=== PATIENT | female | born 1960 | race Caucasian/White ===

== ENCOUNTER 2020-12-25 11:16 | Emergency (ER) | payer MEDICARE, MEDICAID, SELFPAY ==
[2020-12-25] VITALS (8 sets, daily range): BP systolic 134–154; BP diastolic 69–82; PULSE 104–108; RESP 15–18; TEMP 36.6; O2SAT 95–100; BMI 19.5
--- NOTE | 2020-12-25 11:25 | XRR_ITS ---
PROCEDURE INFORMATION: Exam: XR Chest Exam date and time: 12/25/2020 11:37 AM Age: 60 years old Clinical indication: Chest pain; Additional info: susan MARINO TECHNIQUE: Imaging protocol: XR of the chest. Views: 1 view. COMPARISON: No relevant prior studies available. FINDINGS: Lungs: The lungs are hyperinflated compatible with COPD. Probable fibrosis is noted in the lung bases. No consolidation. Pleural spaces: Unremarkable. No pleural effusion. No pneumothorax. Heart/Mediastinum: Unremarkable. No cardiomegaly. Bones/joints: No acute abnormality. XR/XR chest 1V portable [id number] IMPRESSION: No acute findings.
--- NOTE | 2020-12-25 11:25 | CTR_ITS ---
PROCEDURE INFORMATION: Exam: CT Abdomen And Pelvis Without Contrast Exam date and time: 12/25/2020 11:37 AM Age: 60 years old Clinical indication: Abdominal pain; Flank; Right; Additional info: Right flank pain/ hematuria TECHNIQUE: Imaging protocol: Computed tomography of the abdomen and pelvis without contrast. Total images: 297 Radiation optimization: All CT scans at this facility use at least one of these dose optimization techniques: automated exposure control; mA and/or kV adjustment per patient size (includes targeted exams where dose is matched to clinical indication); or iterative reconstruction. COMPARISON: No relevant prior studies available. RADIATION DOSE METRICS: Total DLP (mGy-cm): 897.87 FINDINGS: Lungs: Limited assessment lung bases reveals mild dependent atelectasis. Mild cardiomegaly. Coronary artery disease. No visible pericardial effusion. Liver: No visible hepatic mass or cystic structure. Hepatomegaly. Gallbladder and bile ducts: Enlarged hydropic gallbladder. No visible cholelithiasis. No visible intra or extrahepatic biliary ectasia. Pancreas: Moderate pancreatic atrophy. No visible pancreatic ductal ectasia. Spleen: Normal. No splenomegaly. Adrenal glands: Adrenal glands unremarkable. Kidneys and ureters: No visible hydronephrosis or hydroureter bilaterally. No visible perinephric fluid. No visible nephrolithiasis or ureterolithiasis. Stomach and bowel: Nonobstructive bowel pattern. No visible significant adynamic or reactive ileus. No findings of significant diverticulosis coli or acute diverticulitis. Appendix: The appendix is visualized and appears noninflamed. Intraperitoneal space: No visible pneumoperitoneum or intraperitoneal ascites. Vasculature: The abdominal aorta is nonaneurysmal. Mild arteriosclerosis. Lymph nodes: Unremarkable. No enlarged lymph nodes. Urinary bladder: Urinary bladder unremarkable. Reproductive: Status post hysterectomy. Bones/joints: Burst fracture L5 without significant retropulsion component. No visible posterior element involvement. Anterior height loss of approximately 60% and posteriorly 20-30%. This fracture appears recent. Antecedent appearing mild wedge compression deformities T12 and L1. Osteopenia. Mild scoliotic curvature. Soft tissues: Unremarkable for age. CT/CT kidney stone [id number] IMPRESSION: 1. Burst fracture L5. No visible significant retropulsion component. 2. No visible hydronephrosis, hydroureter, ureterolithiasis, nephrolithiasis, or nephrocalcinosis. 3. Hepatomegaly. 4. Coronary artery disease. 5. Enlarged hydropic gallbladder without visible cholelithiasis or associated biliary ectasia. 6. Other nonurgent, nonemergent, chronic, and age related findings as pleural detailed in text above. Radiation Dose CTDIVOL = (mGy): DLP = 897.87 (mGy-cm)
--- NOTE | 2020-12-25 11:32 | ECG_ITS ---
[facility] Test Date: 2020-12-25 Pat Name: Yvonne Correia Department: Room: Gender: Female Mess Attendant: : 1960 Requested By: Rj Machuca Order Number: [id number] Marlo MD: VERONICA FRANCES Measurements Intervals [place] Rate: 104 P: 75 UT: 158 QRS: 5 QRSD: 85 T: 56 QT: 351 QTc: 462 Interpretive Statements SINUS TACHYCARDIA ABNORMAL RHYTHM ECG No previous ECG available for comparison Electronically Signed On 12-25-2020 22:23:19 CDT by VERONICA FRANCES [id number]
[2020-12-25] MEDS: HYDROmorphone 1 mg/mL INJ 1 mL 0.5 MG IVP (11:56)
[2020-12-25] MEDS: LORazepam 2 mg/mL INJ 1 mL 0.5 MG IVP (11:56)
[2020-12-25] MEDS: ondansetron 2 mg/ML SDV 2 mL 4 MG IVP (11:56)
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
[2020-12-25 12:25] LABS: Basophils # 0.1 10^3/uL (0.0-0.1); Basophils % 0.6 %; Eosinophils % 0.1 %; Lymphocytes # 1.5 10^3/uL (0.8-4.8); Lymphocytes % 10.3 %; Mean Corpuscular HGB Conc 30.6 g/dL (30.0-36.0); Mean Corpuscular Volume 85.1 fL (81-99); Mean Platelet Volume 10.9 fL (7.4-10.4); Monocytes # 0.7 10^3/uL (0.2-0.9); Monocytes % 4.8 %; Neutrophils # 11.86 10^3/uL (1.8-7.7); Neutrophils % 83.8 %; Nucleated Red Blood Cells % 0 %; Platelet Count 278 10^3/cmm (130-400); Red Blood Count 4.23 10^6/uL (4.1-5.3); Red Cell Distribution Width 17.4 % (12.1-15.1); White Blood Count 14.2 10^3/uL (4.0-10.0)
[2020-12-25 12:32] LABS: Add Urine Microscopic? YES; Bilirubin Urine Neg (Negative); Blood Urine 2+ (Negative); Glucose Urine UA Norm (Normal); Ketones Urine 2+ (Negative); Leukocyte Esterase Urine Negative (Negative); Nitrate Urine Negative (Negative); Protein Urine Neg (Negative); Urine Appearance Clear (CLEAR); Urine Color Yellow (Yellow); Urobilinogen Urine Norm (Negative); pH Urine 5 (5-7)
[2020-12-25 12:33] LABS: RBC Urine 0-4 /hpf (0-2); WBC Urine 0-4 /hpf (0-5)
[2020-12-25 12:34] LABS: Bacteria Urine TRACE /hpf; Mucus Urine TRACE /hpf
[2020-12-25 12:35] LABS: Add Urine Culture? No
[2020-12-25 12:40] LABS: Amphetamines Screen Urine Positive (Negative); Barbiturates Screen Urine Negative (Negative); Benzodiazepines Screen Urine Negative (Negative); Cocaine Screen Urine Negative (Negative); Opiate Screen Urine Negative (Negative); PCP Screen Urine Negative (Negative); THC Screen Urine Negative (Negative)
[2020-12-25 12:43] LABS: Lactate (Lactic Acid level) 1.1 mmol/L (0.5-2.2)
[2020-12-25 12:44] LABS: Alanine Aminotransferase 31 U/L (0-33); Albumin Level 4.3 g/dL (3.5-5.2); Alkaline Phosphatase 168 IU/L (35-105); Blood Urea Nitrogen 38 mg/dL (8-23); Carbon Dioxide 17 mmol/L (22-29); Chloride 103 mmol/L (98-107); Globulin 3.1 g/dL (1.3-4.6); Glomerular Filtration Rate 50.5 mL/min (90-130); Glucose 64 mg/dL (65-115); Osmolality Calculated 289 mOsm/kg (285-295); Sodium 136 mmol/L (136-145); Total Bilirubin 0.5 mg/dL (0.15-1.2); Total Protein 7.4 g/dL (6.6-8.7)
[2020-12-25 12:45] LABS: Alcohol Level < 10 mg/dL (0-10)
[2020-12-25 12:46] LABS: Anion Gap 20.6 (5-19); Aspartate Amino Transferase 60 U/L (0-32); Potassium 4.6 mmol/L (3.5-5.1); Troponin(5th) Baseline 67 ng/L (0-10)
[2020-12-25 13:14] LABS: D Dimer 1.18 ug/mIFEU (0-0.59)
--- NOTE | 2020-12-25 13:32 | ECG_ITS ---
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
--- NOTE | 2020-12-25 13:36 | CTR_ITS ---
PROCEDURE INFORMATION: Exam: CTA Chest With Contrast Exam date and time: 12/25/2020 1:45 PM Age: 60 years old Clinical indication: Other: Increased dimer; Patient HX: Limited study do to iv access decreased flow rate and PT not holding still and not holding breath; Additional info: Chest pain TECHNIQUE: Imaging protocol: Computed tomographic angiography of the chest with contrast. 3D rendering (Not supervised by radiologist): MIP and/or 3D reconstructed images were created by the technologist. Total images: 777 Radiation optimization: All CT scans at this facility use at least one of these dose optimization techniques: automated exposure control; mA and/or kV adjustment per patient size (includes targeted exams where dose is matched to clinical indication); or iterative reconstruction. Contrast material: VISI 320; Contrast volume: 67 ml; Contrast route: INTRAVENOUS (IV); COMPARISON: CR (CHEST, ) 12/25/2020 11:34 AM RADIATION DOSE METRICS: Total DLP (mGy-cm): 463.85 FINDINGS: Pulmonary arteries: Suboptimal pulmonary arterial contrast enhancement. No grossly visible central pulmonary embolism/pulmonary arterial thrombus. Cor pulmonale. Aorta: The thoracic aorta is nonaneurysmal. No visible intimal flap or dissection. Moderate arteriosclerosis. Lungs: COPD/chronic bronchitis. Dependent atelectasis lung bases. No other evidence of active interstitial or alveolar airspace disease. Pleural spaces: No pneumothorax. No pleural effusion. Heart: Cardiomegaly. Left ventricular prominence. No visible pericardial effusion. Advanced 3 vessel coronary artery disease. Lymph nodes: No visible active mediastinal or hilar lymphadenopathy. Bones/joints: Previous cervical fusion. Subacute anterior and anterolateral right 2nd, 3rd, 4th, 5th, and 6th rib fractures. Subacute appearing left anterolateral 3rd and 4th rib fractures. Sclerotic T7 vertebral body with compression wedge deformity with anterior height loss approximately 40%. Cannot exclude pathologic fracture with osteoblastic metastasis to the T7 vertebral body. Antecedent appearing compression deformities of T12 and L1. Osteoporosis. Previous cervical fusion. Antecedent appearing mid sternum fracture. Motion artifact limits in degrades detail assessment of the skeletal structures. Soft tissues: Unremarkable for age. Other findings: Motion artifact. CT/CT angio chest PE protcl [id number] IMPRESSION: 1. Suboptimal pulmonary arterial contrast enhancement. No grossly visible central pulmonary embolism/pulmonary arterial thrombus. 2. Cor pulmonale. 3. COPD/chronic bronchitis. 4. Cardiomegaly with advanced 3 vessel coronary artery disease. 5. Sclerotic T7 vertebral body with compression wedge deformity. Cannot exclude pathologic fracture with osteoblastic metastasis to the T7 vertebral body. 6. Subacute appearing bilateral rib fractures. 7. Considerable motion artifact degrades overall image quality and detail assessment. Radiation Dose CTDIVOL = (mGy): DLP = 463.85 (mGy-cm)
[2020-12-25 13:55] LABS: Lipase 21 U/L (13-60)
[2020-12-25] MEDS: LORazepam 2 mg/mL INJ 1 mL 1 MG IVP (14:13)
[2020-12-25 14:58] LABS: Troponin 5 2HR 70.03 ng/L (0-10); Troponin 5 2HR Delta 3.03 ABS# (0-10)
[2020-12-25] MEDS: haloperidol inj 5 mg/mL INJ 1 mL 2 MG IM (15:15)
[2020-12-25] MEDS: iodixanol 320 mg/mL 100mL Btl IV (16:15)
[2020-12-25] MEDS: ziprasidone 20 mg/mL SDV 10 MG IM (17:36)
[2020-12-25] MEDS: sodium chloride 0.9% 1,000 ML 999 ML IV (17:36)
[2020-12-25 18:03] LABS: NT Pro B Type Natriuretic Pept 339 pg/mL (0-125)
== END 2020-12-25 18:41 ==
PROVIDERS: Emergency Provider Family Medicine; PCP Nurse Practitioner
DX: R41.82 Altered mental status, unspecified (principal); F15.10 Other stimulant abuse, uncomplicated; S32.051A Stable burst fracture of fifth lumbar vertebra, initial encounter for closed fracture; S22.069A Unspecified fracture of T7-T8 vertebra, initial encounter for closed fracture; S22.43XA Multiple fractures of ribs, bilateral, initial encounter for closed fracture; V89.2XXA Person injured in unspecified motor-vehicle accident, traffic, initial encounter; R07.9 Chest pain, unspecified
CPT/HCPCS: 36415; 70450; 71045; 71275; 72125; 74176; 80053; 80306; 80307; 81001; 83605; 83690; 83880; 84484; 85025; 85378; 93005; 96372; 96374; 96375; 96376; 99284; J1170; J1630; J2060; J2405; J3486; J7030; Q9967

== ENCOUNTER → 2021-01-04 10:25 | Outpatient (BNVA) | payer MEDICARE, MEDICAID, SELFPAY | PROVIDERS: PCP Nurse Practitioner; Visit Provider Nurse Practitioner | DX: J44.9 Chronic obstructive pulmonary disease, unspecified (principal); I10 Essential (primary) hypertension; R27.8 Other lack of coordination | CPT/HCPCS: 80053; 84443; 85025 ==

== ENCOUNTER → 2021-01-19 16:19 | Outpatient (BNVA) | payer MEDICARE, MEDICAID, SELFPAY | PROVIDERS: PCP Nurse Practitioner; Visit Provider Nurse Practitioner | DX: I10 Essential (primary) hypertension (principal); M79.7 Fibromyalgia; S22.060A Wedge compression fracture of T7-T8 vertebra, initial encounter for closed fracture; X58.XXXA Exposure to other specified factors, initial encounter | CPT/HCPCS: 80048 ==

== ENCOUNTER → 2021-04-27 16:43 | Outpatient (BNVA) | payer MEDICARE, MEDICAID, SELFPAY | PROVIDERS: PCP Nurse Practitioner; Visit Provider Nurse Practitioner | DX: J44.9 Chronic obstructive pulmonary disease, unspecified (principal); I10 Essential (primary) hypertension; M79.7 Fibromyalgia; S22.060A Wedge compression fracture of T7-T8 vertebra, initial encounter for closed fracture; K21.9 Gastro-esophageal reflux disease without esophagitis; G43.909 Migraine, unspecified, not intractable, without status migrainosus; X58.XXXA Exposure to other specified factors, initial encounter | CPT/HCPCS: 80053; 80061; 84443; 85025 ==